=== PATIENT | female | born 1955 | race Caucasian/White ===

== ENCOUNTER 2021-01-10 08:56 | Outpatient (CLI) | payer MEDICARE, BC ==
[~2021-01-10] VITALS: Ht 152.4 cm; Wt 79.4 kg
[2021-01-12] MEDS ORDERED: DIPH25CA79 PO (14:21)
[2021-01-12] MEDS ORDERED: ATOR10TA66 PO (14:21)
[2021-01-12] MEDS ORDERED: PROP20TA5 PO (14:21)
[2021-01-12] MEDS ORDERED: FEXO180T84 PO (14:21)
[2021-01-12] MEDS ORDERED: MONT10TA21 PO (14:21)
[2021-01-12] MEDS ORDERED: NF-VITD400 PO (14:21)
[2021-01-12] MEDS ORDERED: LEVA15HF5 IH (14:22)
== END 2021-01-12 15:14 ==
LOC: PREOP 08:56
PROVIDERS: ATTEND Surgery
DX: Z01.818 Encounter for other preprocedural examination (principal)

== ENCOUNTER → 2021-01-17 | Outpatient (CLI) | payer MEDICARE, BC ==
[~2021-01-17] MED LIST: ATOR10TA66 PO; DIPH25CA79 PO; FEXO180T84 PO; LEVA15HF5 IH; MONT10TA21 PO; NF-VITD400 PO; PANT40TA52 PO; PROP20TA5 PO
== END ==
LOC: LAB FS 10:40
PROVIDERS: ATTEND Surgery
DX: Z01.812 Encounter for preprocedural laboratory examination (principal); Z12.11 Encounter for screening for malignant neoplasm of colon; K21.9 Gastro-esophageal reflux disease without esophagitis; Z20.822 Contact with and (suspected) exposure to COVID-19
CPT/HCPCS: 87636

== ENCOUNTER 2021-01-18 12:28 | Day surgery (SDC) | payer MEDICARE, BC ==
[~2021-01-18] VITALS: Ht 152.4 cm; Wt 79.4 kg
[~2021-01-18 12:28] MED LIST changes: -PANT40TA52 PO
[2021-01-18 12:40] VITALS: BP 156/77
[2021-01-18] MEDS ORDERED: LACTATED RINGERS 1,000 ML IV STA (12:41)
[2021-01-18] MEDS ORDERED: HURRICAINE EXT TUBE (BENZOCAINE) XX PRN (12:45)
[2021-01-18] MEDS ORDERED: LIDOCAINE JELLY 2% 6 ML SYRINGE MM PRN (12:45)
[2021-01-18] MEDS ORDERED: LACTATED RINGERS 1,000 ML IV ONE (12:50)
[2021-01-18] MEDS ORDERED: FAMOTIDINE 20MG/2ML IV (PEPCID) ONE (12:53)
--- NOTE | 2021-01-18 12:55 | Progress Note-Pre Operative ---
Pre-Operative Progress Note H&P Reviewed The H&P was reviewed, patient examined and no changes noted. Date Seen by Provider: Jan 18, 2021 Time Seen by Provider: 12:45 Date H&P Reviewed: Jan 18, 2021 Time H&P Reviewed: 12:45 Pre-Operative Diagnosis: GERD, screening o JOSELIN MAURER MD Jan 18, 2021 12:55
--- NOTE | 2021-01-18 12:56 | Discharge Inst-Surgical ---
D/C Lap Instructions-LIBERTAD Follow Up Activity as tolerated High Fiber Diet 25g or more per day Avoid Alcohol, Caffeine, Spicy [place] and Acid foods. Drink 64 fluid oz or more of fluids per day. Symptoms to Report: Fever over 101 degree F, Nausea/Vomiting If any problems/questions: Contact your physician or go to Emergency Room JOSELIN MAURER MD Jan 18, 2021 12:56
[2021-01-18] MEDS ORDERED: ONDANSETRON 4 MG/2 ML (SDV) Z0FRAN IVP PRN (13:00)
[2021-01-18] MEDS ORDERED: ONDANSETRON 4 MG (ZOFRAN) ORAL DISSOLVE TAB PO PRN (13:00)
[2021-01-18] MEDS ORDERED: MIDAZOLAM 2 MG/2 ML (VERSED) VIAL ONE (13:05)
[2021-01-18] MEDS ORDERED: proPOfol 200 MG/20 ML (DIPRIVAN) VIAL IV ONE ×3 (13:05→14:47)
[2021-01-18] MEDS ORDERED: FAMOTIDINE 20MG/2ML IV (PEPCID) IVP ONE (13:30)
[2021-01-18 15:20] VITALS: BP 128/59
[2021-01-18] MEDS ORDERED: fentaNYL INJ 100 MCG/2 ML AMP ONE (15:25)
[2021-01-18] MEDS ORDERED: fentaNYL INJ 100 MCG/2 ML AMP IVP PRN (15:30)
[2021-01-18] MEDS ORDERED: PANT40TA52 PO (15:38)
[2021-01-18 16:00] VITALS: BP 139/72
--- NOTE | 2021-01-18 16:08 | Progress Note-Post Operative ---
Post-Operative Progess Note Surgeon (s)/Installment Agent (s) Surgeon JOSELIN MAURER MD Installment Agent: none Pre-Operative Diagnosis GERD, screening colo Post-Operative Diagnosis reflux esophagitis(stage 2), small-mod HH(2.5cm), moderate gastritis. mild chronic michaela 2 ext and int hemorrhoids, mod-severe sigmoid diverticulosis. Procedure & Operative Findings Date of Procedure 01/18/21 Procedure Performed/Findings EGD with bx. Colonoscopy. Anesthesia Type mac Estimated Blood Loss Estimated blood loss (mL): minimal Specimens/Packing Specimens Removed ge jxn, antrum JOSELIN MAURER MD Jan 18, 2021 16:08
[2021-01-18 16:35] VITALS: BP 139/72
[2021-01-18 16:40] VITALS: BP 139/72
--- NOTE | 2021-01-18 16:45 | Anesthesia-General Post-Op ---
MAC Patient Condition Mental Status/LOC: Same as Preop Cardiovascular: Satisfactory Nausea/Vomiting: Absent Respiratory: Satisfactory Pain: Controlled Complications: Absent Post Op Complications Complications None Follow Up Care/Instructions Patient Instructions None needed. Anesthesiology Discharge Order Discharge Order Patient is doing well, no complaints, stable vital signs, no apparent adverse anesthesia problems. No complications reported per nursing. ALMA HUFFMAN CRNA Jan 18, 2021 16:44
--- NOTE | 2021-01-18 19:25 | OPERATIVE REPORT ---
DATE OF SERVICE: 01/18/2021 ATTENDING PRIMARY CARE PHYSICIAN: Dr. Cevallos. PREOPERATIVE DIAGNOSES: Gastroesophageal reflux disease and screening colonoscopy. POSTOPERATIVE DIAGNOSES: Reflux esophagitis stage II, small to moderate size hiatal hernia 2.5 to 3 cm in size, moderate gastritis, chronic stage II external and internal hemorrhoids, and [id number] sigmoid diverticulosis. PROCEDURES PERFORMED: EGD with biopsy, colonoscopy. SURGEON: Joselin Maurer MD. ANESTHESIA: Monitored anesthesia care. ESTIMATED BLOOD LOSS: Minimal. FINDINGS: Reflux esophagitis stage II, small to moderate size hiatal hernia 2.5 to 3 cm in size, moderate gastritis, chronic stage II external and internal hemorrhoids, and [id number] sigmoid diverticulosis. DISPOSITION: The patient tolerated the procedure well. INDICATIONS FOR PROCEDURE: The patient is a 65-year-old female, who has had a history of gastroesophageal reflux disease for some amount of time; however, she reports that her symptoms of epigastric burning sensation have worsened over time. She is also in need of a screening colonoscopy. Her last colonoscopy was in 2013, however, she reports polyps were identified, biopsied and found to be benign. She does not report any family history of colon cancer. DESCRIPTION OF PROCEDURE: The patient was brought to the endoscopy suite and laid in a left lateral decubitus position. After adequate IV pain and sedative medications and monitored anesthesia care, the mouthpiece was applied. The endoscope was placed in the mouth, visualizing the pharynx and hypopharyngeal region. Vocal cords, epiglottis and vallecula identified and appeared to be normal. The endoscope was then gently intubated into the esophageal opening and esophagus insufflated. The endoscope was then advanced through the first, second and third portion of esophagus. At the level of the GE junction, a reflux esophagitis stage II identified. There were no ulcers or strictures identified in this region. A biopsy was taken with forceps with visualization of good hemostasis. The endoscope was then advanced in the stomach and endoscope retroflexed, visualizing a small to moderate size hiatal hernia approximately 2.5 to 3 cm in size. There was a moderate severity gastritis. No formal ulcerations, polyps or any neoplasms. A biopsy was taken of the antrum to rule out H. pylori with visualization of good hemostasis. The endoscope was then advanced to the pylorus and the first and second portion of the duodenum, which appeared normal. No ulcerations or distal obstructions. The endoscope was then slowly withdrawn while taking a second look and suctioning of residual air with no additional findings. We then proceeded with a digital rectal examination, which revealed chronic stage II external and internal hemorrhoids, not actively edematous nor inflamed and no bleeding. Normal sphincter tone was felt and there were no palpable masses. The endoscope was then intubated and anus and rectum gently insufflated. The endoscope was then advanced through the valves of Andres of the rectum with no polyps or any neoplasms identified. There was a tortuous sigmoid colon and the patient was placed in a supine position and the colonoscope was changed to a pediatric colonoscope. The endoscope was then advanced through the sigmoid colon with a moderate to severe sigmoid diverticulosis identified. There were no mucosal inflammatory changes to indicate any active diverticulitis. The endoscope was then advanced through the remainder of the descending, transverse and ascending colon to the cecum. These segments were normal. No polyps or any neoplasms identified. The endoscope was then slowly withdrawn while taking a second look of suction of residual air with no additional findings. The patient tolerated the procedure well. We will recommend the necessary lifestyle and diet accommodation. For her reflux and hiatal hernia, we will recommend small and more frequent meals, avoidance of eating at night as well as head elevation while lying supine. She also needs to avoid caffeinated beverages, spicy, greasy and acidic foods. We will also proceed with a prescription strength of pantoprazole 40 mg daily. We will also recommend the incorporation of a high-fiber diet with a fiber supplement, which should equal or exceed 25 grams daily to promote soft stools on a daily basis and avoid hard constipated stools. If she is asymptomatic, she does not need another colonoscopy for another 10 years. Job ID: [id number] DocumentID: [id number] Dictated Date: 01/18/2021 15:09:29 Chemical Mixer Date: 01/18/2021 19:24:38 Dictated By: JOSELIN MAURER MD
--- NOTE | 2021-01-20 08:16 | Progress Note ---
Standard Progress Note Progress Notes/Assess & Plan Date Seen by a Provider: Jan 18, 2021 Time Seen by a Provider: 12:50 Progress/Assessment & Plan late entry: pepcid 20 mg IV given to patient preop for history of N/V with sedation ALMA HUFFMAN CRNA Jan 20, 2021 08:16
== END 2021-01-18 16:40 | disposition home or self-care (01) ==
LOC: ENDO 12:28
PROVIDERS: ATTEND Surgery
DX: Z12.11 Encounter for screening for malignant neoplasm of colon (principal); K21.00 Gastro-esophageal reflux disease with esophagitis, without bleeding; K22.70 Barrett's esophagus without dysplasia; K29.70 Gastritis, unspecified, without bleeding; K44.9 Diaphragmatic hernia without obstruction or gangrene; K64.4 Residual hemorrhoidal skin tags; K64.1 Second degree hemorrhoids; K57.30 Diverticulosis of large intestine without perforation or abscess without bleeding; K31.89 Other diseases of stomach and duodenum; I10 Essential (primary) hypertension; E78.5 Hyperlipidemia, unspecified; Z87.891 Personal history of nicotine dependence; Z79.899 Other long term (current) drug therapy